=== PATIENT | female | born 1990 | race Caucasian/White ===

== ENCOUNTER 2019-06-12 21:35 | Emergency (ER) | payer OTHER ==
[~2019-06-12] VITALS: Ht 170.2 cm; Wt 64.0 kg
[2019-06-12] MEDS ORDERED: FISH OIL 1,0001 EAC1 PO (21:49)
[2019-06-12] MEDS ORDERED: Milk Thistle150 MG PO (21:49)
[2019-06-12] MEDS ORDERED: Fish Oil 10001000 MG GT (21:49)
== END 2019-06-12 23:51 | disposition home or self-care (01) ==
LOC: ER 21:35
DX: F10.239 Alcohol dependence with withdrawal, unspecified (principal)
CPT/HCPCS: 96372; 99284-25; J2060